=== PATIENT | female | born 1930 | race Two or more races ===

== ENCOUNTER 2022-02-03 08:52 | Emergency (ER) | payer OTHER ==
[~2022-02-03] VITALS: Ht 160 cm; Wt 75.7 kg
[2022-02-03] MEDS ORDERED: COZAAR25 MG PO (09:06)
[2022-02-03] MEDS ORDERED: LEVOTHYROXINE25 MCG PO (09:07)
== END 2022-02-03 09:56 | disposition home or self-care (01) ==
LOC: ER 08:52
DX: L03.032 Cellulitis of left toe (principal); M79.672 Pain in left foot